=== PATIENT | male | born 1980 | race American Indian/Alaskan Native ===

== ENCOUNTER 2021-11-21 10:07 | Day surgery (SDC) | payer BC ==
[~2021-11-21 10:07] MED LIST: LACTATED RINGERS 1,000 ML IV SCH; MIDAZOLAM 2 MG/2 ML INJ IV NR
--- NOTE | 2021-11-21 11:53 | Anesthesia Day of Surgery ---
Anesthesia Day of Surgery - Day of Surgery Patient Examined: Yes Patient H&P Reviewed: Yes Patient is NPO: Yes
--- NOTE | 2021-11-21 11:53 | Anesthesia Consultation ---
Anesthesia Consult and Med Hx Date of service: 11/21/21 - Airway Anesthetic Teeth Evaluation: Good ROM Head & Neck: Adequate Mental/Hyoid Distance: Adequate Mallampati Class: Class III Intubation Access Assessment: Possibly Difficult - Pre-Operative Health Status ASA Pre-Surgery Classification: ASA3 - Pulmonary Hx Smoking: No Hx Sleep Apnea: Yes (DX SLEEP APNEA WITH CPAP USE.) - Cardiovascular System Hx Hypertension: Yes (SELF D/C MEDS 3 MONTHS AGO) Hx Heart Murmur: Yes - Central Nervous System Hx Psychiatric Problems: No - Hematic Hx Anemia: No - Other Systems Hx Cancer: No Hx Obesity: Yes (BMi 31.1)
[2021-11-21] MEDS ORDERED: FAMOTIDINE 20 MG/2 ML INJ IV NR (12:00)
[2021-11-21] MEDS ORDERED: ONDANSETRON 4 MG/2 ML INJ IV PRN (12:02)
[2021-11-21] MEDS ORDERED: HYDROcodone/ACETAMINOPHEN 5-325 MG TAB PO PRN (12:02)
[2021-11-21] MEDS ORDERED: HYDROmorphone 0.5 MG/0.5 ML INJ IV PRN (12:02)
[2021-11-21] MEDS ORDERED: LIDOCAINE MPF (2%) 20 MG/1 ML VIAL 5 ML ONE (12:12)
[2021-11-21] MEDS ORDERED: propofoL 200 MG/20 ML VIAL IV ONE ×3 (12:12→13:01)
[2021-11-21] MEDS ORDERED: ceFAZolin/Water 2 GM/20 ML 2 GM/20 ML SYRINGE IV ONE (12:13)
[2021-11-21] MEDS ORDERED: BUPIVACAINE/PF (0.5%) 5 MG/1 ML 30 ML VIAL INFILTRATI ONE ×2 (12:53→13:00)
[2021-11-21] MEDS ORDERED: ceFAZolin/STERILE WATER 2 GM/20 ML SYRINGE IV NR (13:00)
[2021-11-21] MEDS ORDERED: SODIUM CHLORIDE 0.9% IRR 1,000 ML BOTTLE IR ONE (13:01)
[2021-11-21] MEDS ORDERED: ONDANSETRON 4 MG/2 ML INJ ONE (13:01)
[2021-11-21] MEDS ORDERED: KETOROLAC 30 MG/1 ML INJ ONE (13:19)
--- NOTE | 2021-11-21 13:39 | Post Operative Note ---
Date of procedure: 11/21/21 Pre-op diagnosis: elective sterilization Post-op diagnosis: same Procedure: vas Anesthesia: GETA Surgeon: KIETH SALINAS Estimated blood loss: none Pathology: list (vasa) Specimen disposition: to lab Condition: stable Disposition: PACU
[2021-11-21] MEDS: hydrALAZINE 20 MG/1 ML INJ IV PRN ×2 (13:40→14:35)
--- NOTE | 2021-11-21 13:40 | Discharge Summary ---
Short Stay Discharge Plan Activity: other (no straining ) Weight Bearing Status: Full Weight Bearing Diet: low fat, low cholesterol, low salt Wound: open to air Special Instructions: other (no sex x 1 week use protection until gets semen checked ) Durable Medical Equipment Needed Upon Discharge: other (ice packs in rr and 24 hrs) Follow up with: RODGER BRAVO MD [Primary Care Provider] - 7 Days KEITH SALINAS MD [Staff Physician] - 6 Weeks
[2021-11-21 15:22] VITALS: BP 160/95
--- NOTE | 2021-11-21 15:43 | Post Anesthesia Evaluation ---
- Post Anesthesia Evaluation Patient Participated: Yes Airway Patent: Yes Stable Respiratory Function: Yes Nausea/Vomiting: No Temp > 96.8F: Yes Pain Manageable: Yes Adequeate Hydration: Yes Anesthesia Complications: No
--- NOTE | 2021-11-21 16:48 | Operative Report ---
DATE OF SURGERY: 11/21/2021 PREOPERATIVE DIAGNOSIS: Elective sterilization. POSTOPERATIVE DIAGNOSIS: Elective sterilization. PROCEDURE: Bilateral partial vasectomy. SURGEON: Dr. Galeas. ANESTHESIA: MAC. FINDINGS: This is a gentleman who presents for vasectomy. All risks and implications discussed. DESCRIPTION OF PROCEDURE: The patient was brought to the operating room and placed on the operating table. Following induction of anesthesia, prepped and draped in usual sterile fashion. The vasa were well palpable. We did this here because his blood pressure in the office kept going too high. We could not do it safely in the office. Even here, it was a little high. A small incision was made off the midline on the right side and the vas was isolated. He was given local anesthesia as well as MAC. The vas was isolated and delivered. A small segment was removed. It was doubly tied with a 2-0 silk and cauterized as well as imbricated. In a symmetrical fashion, the left vas was removed medially and isolated and dissected free. It was doubly tied and cauterized. A tiny segment was removed. The patient tolerated the procedure well. No significant complications. Instructions given. He was brought to recovery in stable condition. TID: [id number] RECEIPT: [id number]
== END 2021-11-21 16:00 | disposition home or self-care (01) ==
LOC: OR 10:07
PROVIDERS: ATTEND Urology
DX: Z30.2 Encounter for sterilization (principal); I10 Essential (primary) hypertension; G47.30 Sleep apnea, unspecified; E66.9 Obesity, unspecified; Z87.891 Personal history of nicotine dependence; Z79.899 Other long term (current) drug therapy; Z68.31 Body mass index [BMI] 31.0-31.9, adult; Z98.890 Other specified postprocedural states
CPT/HCPCS: 55250; 88302; J0360; J0690; J1885; J2250; J2405; J2704; J3490; J7120